=== PATIENT | female | born 1975 | race Caucasian/White ===

== ENCOUNTER → 2016-10-09 | Outpatient (CLI) | payer OTHER ==
[~2016-10-09] MED LIST: ASPIRIN ADULT L81 M1 PO; BUSPAR5 MG PO; CYCLOBENZAPRINE5 M3 PO; FISH OIL500 M1 PO; HYDROCODONE BIT1 T11 PO; MOBIC15 MG PO; MULTI VITAMINS1 TAB PO; Motrin,Rufen800 MG PO; NEPHRO-VITE RX1 TAB PO; ORTHO TRI-CYCL1 EACH PO; SINGULAIR10 M1 PO; TYLENOL650 MG PO; VITAMIN D3400 UNIT PO; XANAX0.25 MG PO; ZOFRAN ODT4 MG SL; ZYRTEC10 M2 PO
--- NOTE | ~2016-10-09 | ST ---
[place], [place] EXERCISE STRESS TEST REPORT NAME: CAN BERNSTEIN [facility] #: [id number] UNIT #: [id number] ROOM: DOCTOR: DEV LOPEZ,JULIA BIRTHDATE: [birth year] DOS: 10/09/2016 EXERCISE MYOCARDIAL STRESS TEST REASON FOR STRESS TEST: Atypical, precordial chest pain. PROCEDURE: The patient walked for 10 minutes on a full Gian protocol stress test and achieved a maximum heart rate of 175, which represented 98% of her maximum predicted heart rate at a workload of 12.5 mets. She did not experience her presenting chest pain and stopped for fatigue and dyspnea. The resting electrocardiogram was normal. During exercise, she had up to 1.[address] segment depression in the inferior and lateral leads, which resolved immediately in recovery. This is an equivocal electrocardiographic change which predicts a low risk for coronary ischemia. Resting blood pressure of 110/60, alanis to 160 over palpation. IMPRESSION: 1. Excellent exercise capacity without chest pain and with equivocal electrocardiographic changes. 2. Low risk exercise stress test. JULIA MÉNDEZ MD CM:STRESS:EXERCISE STRESS TEST REPORT [id number] JULIA MÉNDEZ MD
== END | disposition home or self-care (01) ==
LOC: CARD 08:15
DX: R00.2 Palpitations (principal); R07.89 Other chest pain

== ENCOUNTER 2016-10-10 20:22 | Emergency (ER) | payer OTHER ==
[~2016-10-10] VITALS: Ht 160 cm; Wt 73.9 kg
[~2016-10-10 20:22] MED LIST changes: -HYDROCODONE BIT1 T11 PO
[2016-10-10 20:31] VITALS: BP 140/86
[2016-10-10] MEDS ORDERED: HYDROCODONE BIT1 T11 PO (22:05)
== END 2016-10-10 22:00 | disposition home or self-care (01) ==
LOC: ED 20:22
DX: S02.2XXA Fracture of nasal bones, initial encounter for closed fracture (principal); S09.8XXA Other specified injuries of head, initial encounter; Z79.82 Long term (current) use of aspirin; Z79.899 Other long term (current) drug therapy; W10.9XXA Fall (on) (from) unspecified stairs and steps, initial encounter; Y93.9 Activity, unspecified; Y92.9 Unspecified place or not applicable; Y99.9 Unspecified external cause status

== ENCOUNTER → 2017-05-14 | Outpatient (CLI) | payer OTHER ==
[~2017-05-14] MED LIST changes: +HYDROCODONE BIT1 T11 PO
== END | disposition home or self-care (01) ==
LOC: MAMMO 17:24
DX: Z12.31 Encounter for screening mammogram for malignant neoplasm of breast (principal)

== ENCOUNTER → 2017-05-20 | Outpatient (CLI) | payer OTHER ==
[2017-05-20 14:05] LABS: HEMATOCRIT 40.5 % (37.0-47.0); HEMOGLOBIN 13.7 g/dl (12.0-16.0)
[2017-05-21 08:12] LABS: FOLLICLE STIMULATING HORMONE 3.4 mIU/mL (.); LUTEINIZING HORMONE 004283 7.4 mIU/mL (.)
== END | disposition home or self-care (01) ==
LOC: LAB 13:15
PROVIDERS: Family Medicine
DX: N93.8 Other specified abnormal uterine and vaginal bleeding (principal)

== ENCOUNTER → 2017-05-22 | Outpatient (CLI) | payer OTHER | END | disposition home or self-care (01) | LOC: US 05-20 13:17 | DX: N93.8 Other specified abnormal uterine and vaginal bleeding (principal); R10.30 Lower abdominal pain, unspecified ==

== ENCOUNTER 2017-06-07 18:27 | Emergency (ER) | payer OTHER ==
[~2017-06-07] VITALS: Ht 160 cm; Wt 74.8 kg
--- NOTE | ~2017-06-07 | EKG ---
[place], [place] ELECTROCARDIOGRAM REPORT NAME: CAN BERNSTEIN UNIT #: [id number] ROOM: DOCTOR: CINDY LOPEZ,FILI BIRTHDATE: [birth year] DOS: 06/07/2017 TIME: 1903 hours. CONCLUSION: 1. Normal sinus rhythm. 2. Low voltage complex in the precordial leads. FILI WHITE MD CM:EKGRPT:ELECTROCARDIOGRAM REPORT [id number] FILI WHITE MD
[2017-06-07 19:07] LABS: BASO % 0.4 % (0.0-1.0); EOS # 0.1 10*3/uL (0.0-0.4); EOS % 0.8 % (1.0-4.0); HEMOGLOBIN 12.9 g/dl (12.0-16.0); LYMPH # 2.8 10*3/uL (1.3-4.4); LYMPH % 35.1 % (27.0-41.0); MEAN CELL VOLUME 93.9 fl (81.0-99.0); MEAN CORPUSCULAR HGB 32.7 pg (27.0-31.0); MEAN CORPUSCULAR HGB CONC 34.9 g/dl (33.0-37.0); MEAN PLATELET VOLUME 9.7 fl (9.6-12.3); MONO # 0.7 10*3/uL (0.1-1.0); MONO % 8.7 % (3.0-9.0); NEUT # 4.4 10*3/uL (2.3-7.9); NEUT % 54.7 % (47.0-73.0); PLATELET COUNT AUTOMATED 212 10*3/uL (130-400); RED BLOOD COUNT 3.94 10*6/uL (4.10-5.10); RED CELL DISTRI WIDTH 11.7 % (0-14.5)
[2017-06-07 19:16] LABS: INTERNATIONAL NORM RATIO 0.9 (2.0-3.5)
[2017-06-07 19:24] LABS: ALBUMIN 3.5 gm/dl (3.1-4.5); ALKALINE PHOSPHATASE 37 U/L (45-117); BUN 15 mg/dl (7-24); CHLORIDE 108 mmol/L (98-107); CPK 85 U/L (26-192); CREATININE 0.78 mg/dL (0.55-1.02); LDH 120 U/L (84-246); POTASSIUM 3.8 mmol/L (3.5-5.1); SGOT/AST 11 IU/L (3-35); SGPT/ALT 18 U/L (12-78); SODIUM 141 mmol/L (136-145); TOTAL PROTEIN 7.1 gm/dL (6.4-8.2)
[2017-06-07 19:27] LABS: CKMB < 0.5 ng/ml (0.5-3.6); TROPONIN I < 0.015 ng/ml (<0.045)
[2017-06-07 20:32] VITALS: BP 119/72
[2017-06-07] MEDS ORDERED: NAPROSYN500 MG PO (23:08)
[2017-06-07] MEDS ORDERED: ROBAXIN-750750 MG PO (23:08)
== END 2017-06-07 23:41 | disposition home or self-care (01) ==
LOC: ED 18:27
PROVIDERS: Physician Assistant
DX: R07.9 Chest pain, unspecified (principal); R06.02 Shortness of breath; Z79.82 Long term (current) use of aspirin; Z79.899 Other long term (current) drug therapy

== ENCOUNTER → 2017-08-02 | Outpatient (CLI) | payer OTHER ==
[~2017-08-02] MED LIST changes: +NAPROSYN500 MG PO; +ROBAXIN-750750 MG PO
[2017-08-02 12:21] LABS: INTERNATIONAL NORM RATIO 0.9 (2.0-3.5)
[2017-08-02 12:22] LABS: BASO % 0.3 % (0.0-1.0); EOS # 0.1 10*3/uL (0.0-0.4); EOS % 1.5 % (1.0-4.0); HEMATOCRIT 40.4 % (37.0-47.0); HEMOGLOBIN 13.8 g/dl (12.0-16.0); LYMPH # 1.7 10*3/uL (1.3-4.4); MEAN CORPUSCULAR HGB 32.1 pg (27.0-31.0); MEAN CORPUSCULAR HGB CONC 34.2 g/dl (33.0-37.0); MEAN PLATELET VOLUME 9.9 fl (9.6-12.3); MONO # 0.5 10*3/uL (0.1-1.0); MONO % 8.9 % (3.0-9.0); NEUT # 3.6 10*3/uL (2.3-7.9); NEUT % 60.1 % (47.0-73.0); PLATELET COUNT AUTOMATED 215 10*3/uL (130-400); RED CELL DISTRI WIDTH 11.8 % (0-14.5)
[2017-08-02 12:31] LABS: ALBUMIN 3.7 gm/dl (3.1-4.5); ALKALINE PHOSPHATASE 39 U/L (45-117); BUN 11 mg/dl (7-24); CHLORIDE 106 mmol/L (98-107); CREATININE 0.79 mg/dL (0.55-1.02); SGOT/AST 12 IU/L (3-35); SGPT/ALT 23 U/L (12-78); SODIUM 140 mmol/L (136-145); TOTAL PROTEIN 7.5 gm/dL (6.4-8.2)
[2017-08-04 15:03] LABS: PROTEIN S-FUNCTIONAL 164525 129 % (63-140)
== END | disposition home or self-care (01) ==
LOC: LAB 11:35
PROVIDERS: Family Medicine
DX: R25.2 Cramp and spasm (principal); R79.1 Abnormal coagulation profile; Z82.49 Family history of ischemic heart disease and other diseases of the circulatory system

== ENCOUNTER → 2017-08-09 | Outpatient (CLI) | payer OTHER | END | disposition home or self-care (01) | LOC: LAB 14:50 | DX: A09 Infectious gastroenteritis and colitis, unspecified (principal); R19.5 Other fecal abnormalities ==

== ENCOUNTER → 2017-08-14 | Outpatient (CLI) | payer OTHER ==
[2017-08-14 18:29] LABS: BASO % 0.3 % (0.0-1.0); EOS # 0.1 10*3/uL (0.0-0.4); EOS % 1.5 % (1.0-4.0); HEMATOCRIT 39.7 % (37.0-47.0); HEMOGLOBIN 13.6 g/dl (12.0-16.0); LYMPH # 2.6 10*3/uL (1.3-4.4); LYMPH % 42.5 % (27.0-41.0); MEAN CELL VOLUME 92.3 fl (81.0-99.0); MEAN CORPUSCULAR HGB 31.6 pg (27.0-31.0); MEAN CORPUSCULAR HGB CONC 34.3 g/dl (33.0-37.0); MEAN PLATELET VOLUME 9.6 fl (9.6-12.3); MONO # 0.6 10*3/uL (0.1-1.0); MONO % 10.1 % (3.0-9.0); NEUT # 2.8 10*3/uL (2.3-7.9); NEUT % 45.3 % (47.0-73.0); PLATELET COUNT AUTOMATED 269 10*3/uL (130-400); RED CELL DISTRI WIDTH 11.4 % (0-14.5); WHITE BLOOD COUNT 6.1 10*3/uL (4.8-10.8)
[2017-08-14 18:45] LABS: ALBUMIN 3.8 gm/dl (3.1-4.5); ALKALINE PHOSPHATASE 40 U/L (45-117); BUN 15 mg/dl (7-24); CHLORIDE 102 mmol/L (98-107); CREATININE 0.84 mg/dL (0.55-1.02); POTASSIUM 3.9 mmol/L (3.5-5.1); SGOT/AST 13 IU/L (3-35); SGPT/ALT 21 U/L (12-78); SODIUM 140 mmol/L (136-145); TOTAL PROTEIN 7.4 gm/dL (6.4-8.2)
== END ==
LOC: LAB 18:08
PROVIDERS: Family Medicine Adult Medicine
DX: R05 Cough (principal); R09.89 Other specified symptoms and signs involving the circulatory and respiratory systems; R06.2 Wheezing

== ENCOUNTER 2017-09-07 13:39 | Emergency (ER) | payer OTHER ==
[~2017-09-07] VITALS: Ht 160 cm; Wt 74.8 kg
[2017-09-07 13:42] VITALS: BP 143/78
[2017-09-07 13:58] LABS: BASO % 0.3 % (0.0-1.0); EOS % 0.3 % (1.0-4.0); HEMATOCRIT 42.5 % (37.0-47.0); HEMOGLOBIN 14.5 g/dl (12.0-16.0); LYMPH # 1.5 10*3/uL (1.3-4.4); LYMPH % 21.9 % (27.0-41.0); MEAN CELL VOLUME 92.8 fl (81.0-99.0); MEAN CORPUSCULAR HGB 31.7 pg (27.0-31.0); MEAN CORPUSCULAR HGB CONC 34.1 g/dl (33.0-37.0); MEAN PLATELET VOLUME 9.4 fl (9.6-12.3); MONO # 0.5 10*3/uL (0.1-1.0); MONO % 6.4 % (3.0-9.0); NEUT % 70.8 % (47.0-73.0); PLATELET COUNT AUTOMATED 203 10*3/uL (130-400); RED BLOOD COUNT 4.58 10*6/uL (4.10-5.10); RED CELL DISTRI WIDTH 11.8 % (0-14.5)
[2017-09-07 14:14] LABS: ALKALINE PHOSPHATASE 41 U/L (45-117); BUN 13 mg/dl (7-24); CHLORIDE 106 mmol/L (98-107); CREATININE 0.89 mg/dL (0.55-1.02); LIPASE 271 U/L (73-393); POTASSIUM 3.7 mmol/L (3.5-5.1); SGOT/AST 13 IU/L (3-35); SGPT/ALT 27 U/L (12-78); SODIUM 140 mmol/L (136-145); TOTAL PROTEIN 7.9 gm/dL (6.4-8.2)
[2017-09-07 14:36] LABS: BILIRUBIN NEGATIVE (NEGATIVE); BLOOD TRACE-LYSED (NEGATIVE); CLARITY CLEAR (CLEAR); COLOR YELLOW (YELLOW); GLUCOSE NEGATIVE (NEGATIVE); KETONE NEGATIVE (NEGATIVE); LEUKO ESTERASE NEGATIVE (NEGATIVE); NITRITE NEGATIVE (NEGATIVE); PH 6.5 (5.0-9.0); UROBILINOGEN 0.2 E.U./dl (0.2-1.0)
[2017-09-07 14:41] LABS: BACTERIA TRACE; EPITHELIAL CELLS 0-2; WBC 0-2 wbc/hpf (0-5)
[2017-09-07] MEDS ORDERED: MIRALAX POWDER17 G1 PO (15:49)
== END 2017-09-07 15:53 | disposition home or self-care (01) ==
LOC: ED 13:39
PROVIDERS: Nurse Practitioner Family
DX: K59.00 Constipation, unspecified (principal); R03.0 Elevated blood-pressure reading, without diagnosis of hypertension; G43.909 Migraine, unspecified, not intractable, without status migrainosus; Z90.49 Acquired absence of other specified parts of digestive tract; Z98.890 Other specified postprocedural states; Z79.899 Other long term (current) drug therapy; Z79.82 Long term (current) use of aspirin

== ENCOUNTER 2017-09-13 15:55 | Emergency (ER) | payer OTHER ==
[~2017-09-13] VITALS: Ht 160 cm; Wt 72.6 kg
[~2017-09-13 15:55] MED LIST changes: +MIRALAX POWDER17 G1 PO
[2017-09-13 16:04] VITALS: BP 128/69
[2017-09-13 16:39] LABS: BASO % 0.2 % (0.0-1.0); EOS % 0.5 % (1.0-4.0); HEMATOCRIT 40.5 % (37.0-47.0); HEMOGLOBIN 14.1 g/dl (12.0-16.0); LYMPH # 1.9 10*3/uL (1.3-4.4); LYMPH % 31.4 % (27.0-41.0); MEAN CELL VOLUME 91.2 fl (81.0-99.0); MEAN CORPUSCULAR HGB 31.8 pg (27.0-31.0); MEAN CORPUSCULAR HGB CONC 34.8 g/dl (33.0-37.0); MEAN PLATELET VOLUME 9.6 fl (9.6-12.3); MONO # 0.5 10*3/uL (0.1-1.0); MONO % 7.6 % (3.0-9.0); NEUT # 3.7 10*3/uL (2.3-7.9); NEUT % 60.1 % (47.0-73.0); PLATELET COUNT AUTOMATED 207 10*3/uL (130-400); RED BLOOD COUNT 4.44 10*6/uL (4.10-5.10); RED CELL DISTRI WIDTH 11.5 % (0-14.5); WHITE BLOOD COUNT 6.1 10*3/uL (4.8-10.8)
[2017-09-13 16:53] LABS: ALBUMIN 3.9 gm/dl (3.1-4.5); ALKALINE PHOSPHATASE 41 U/L (45-117); BUN 10 mg/dl (7-24); CHLORIDE 109 mmol/L (98-107); CREATININE 0.78 mg/dL (0.55-1.02); LIPASE 250 U/L (73-393); POTASSIUM 3.6 mmol/L (3.5-5.1); SGOT/AST 14 IU/L (3-35); SGPT/ALT 23 U/L (12-78); SODIUM 141 mmol/L (136-145); TOTAL PROTEIN 7.8 gm/dL (6.4-8.2)
[2017-09-13 17:16] LABS: BILIRUBIN NEGATIVE (NEGATIVE); BLOOD TRACE-LYSED (NEGATIVE); CLARITY CLEAR (CLEAR); COLOR YELLOW (YELLOW); GLUCOSE NEGATIVE (NEGATIVE); KETONE NEGATIVE (NEGATIVE); LEUKO ESTERASE NEGATIVE (NEGATIVE); NITRITE NEGATIVE (NEGATIVE); PH 6.5 (5.0-9.0); SPECIFIC GRAVITY <= 1.005 (1.005-1.030); UROBILINOGEN 0.2 E.U./dl (0.2-1.0)
[2017-09-13 17:25] LABS: RBC 0-2 rbc/hpf (0-2); WBC 0-2 wbc/hpf (0-5)
[2017-09-13] MEDS ORDERED: BENTYL10 MG PO (18:30)
[2017-09-13] MEDS ORDERED: ZANTAC 150150 MG PO (18:30)
== END 2017-09-13 18:33 | disposition home or self-care (01) ==
LOC: ED 15:55
PROVIDERS: Physician Assistant
DX: R10.13 Epigastric pain (principal); R10.11 Right upper quadrant pain; Z90.49 Acquired absence of other specified parts of digestive tract; Z98.890 Other specified postprocedural states; Z79.899 Other long term (current) drug therapy; Z79.82 Long term (current) use of aspirin

== ENCOUNTER → 2017-10-04 | Day surgery (SDC) | payer OTHER ==
[~2017-10-04] VITALS: Ht 160 cm; Wt 74.8 kg
[~2017-10-04] MED LIST changes: +BENTYL10 MG PO; +HYOSCYAMINE0.125 MG PO; +OMEPRAZOLE20 M2 PO; +ZANTAC 150150 MG PO
--- NOTE | ~2017-10-04 | O ---
[place], [place] OPERATIVE NOTE NAME: CAN BERNSTEIN UNIT #: [id number] ROOM: DOCTOR: PATRICIA LEI MD BIRTHDATE: [birth year] DOS: 10/04/2017 HISTORY OF PRESENT ILLNESS: A 42-year-old patient who presented with a chief complaint of epigastric abdominal pain, dyspepsia, bloating. Labs and chemistries were normal. Constipation has been also experienced by her. ALLERGIES: WHEAT. FAMILY HISTORY: Noncontributory. PAST SURGICAL HISTORY: Cholecystectomy and . PAST MEDICAL HISTORY: Hypercholesterolemia, anxiety. SOCIAL HISTORY: Quit smoking, nonalcohol consumer. PROCEDURE: Today's procedure part of investigation is panendoscopy and colonoscopy. PREMEDICATION: Versed and Diprivan. SCOPE: Olympus forward-viewing gastroscope Q10 video. REPORT: After putting the patient in left lateral position and application of lubricant to the scope, the scope was introduced. Thereafter, under direct visualization, I advanced through the length of esophagus without difficulty. Esophagus, cervical, thoracic distal within normal limits. Small hiatal hernia was noticed. Gastric pouch was entered. Gastritis was identified. Duodenal bulb, second and third part within normal limits. The patient was gradually extubated and tolerated procedure well. IMPRESSION: Gastritis, small hiatal hernia, status post antral biopsy. PLAN AND DISCUSSION: I am going to proceed with colonoscopic evaluation. Thank you very much indeed. GASTROENDOSCOPIC REPORT HISTORY: A 42-year-old patient who presented with chief complaint of epigastric abdominal pain, change in bowel habit. Today's procedure part of investigation is colonoscopy. PREMEDICATION: Versed and Diprivan. SCOPE: Olympus folding colonoscope 10L video. REPORT: After putting the patient in left lateral position and application of lubricant to rectal pouch and digital examination, scope was introduced. [place], [place] OPERATIVE NOTE NAME: CAN BERNSTEIN UNIT #: [id number] ROOM: DOCTOR[facility] B[facility] [birth year] Thereafter, under direct visualization, advanced through the length of colon without difficulty. Sessile polypoid lesion and sigmoid colon with piecemeal polypectomy as well as another small polyp nearly next to it with piecemeal polypectomy was removed. No acute pathology otherwise to base of cecum explored noticed. Appendiceal orifice was identified, photographed. Ileocecal valve was photographed. The patient extubated, tolerated procedure well. IMPRESSION: Sessile colonic polyp at sigmoid colon 2.5 mm, status post 2 piecemeal polypectomy. PLAN AND DISCUSSION: I did not see any acute pathology in the colon and the patient has had several CT scans done last year and this year with and without contrast. No pathology has been identified. Therefore, we are going to treat her with hyoscyamine 0.125 mg to see 1 every day to see if her symptomatology improves. In addition, her upper GI tract symptoms is going to be addressed with PPI therapy including omeprazole 20 mg 1 daily. She is already on Bentyl, Bentyl is going to be discontinued. She has taken Bentyl 4 times a day as going to be discontinued and her other medications noticed. Supportive care in progress. Thank you very much indeed for your kind referral. PATRICIA LEI MD CM:MELYORD:OPERATIVE NOTE [id number] [id number] PATRICIA LEI MD 10/04/17 1236 interface
[2017-10-04 10:14] VITALS: BP 126/66
[2017-10-04 11:32] VITALS: BP 102/62
[2017-10-04 11:47] VITALS: BP 94/50
== END | disposition home or self-care (01) ==
LOC: SDC 10-01 08:00
DX: K29.50 Unspecified chronic gastritis without bleeding (principal); K63.5 Polyp of colon; K44.9 Diaphragmatic hernia without obstruction or gangrene; Z91.018 Allergy to other foods; Z90.49 Acquired absence of other specified parts of digestive tract; Z98.890 Other specified postprocedural states; E78.00 Pure hypercholesterolemia, unspecified; F41.9 Anxiety disorder, unspecified; Z87.891 Personal history of nicotine dependence; Z80.9 Family history of malignant neoplasm, unspecified

== ENCOUNTER → 2017-10-30 | Outpatient (CLI) | payer OTHER | END | disposition home or self-care (01) | LOC: US 15:39 | DX: R10.2 Pelvic and perineal pain (principal) ==

== ENCOUNTER → 2017-12-04 | Outpatient (CLI) | payer OTHER ==
[2017-12-04 08:27] LABS: BUN 13 mg/dl (7-24); CHLORIDE 105 mmol/L (98-107); CHOLESTEROL 186 mg/dL (<200); CREATININE 0.85 mg/dL (0.55-1.02); HDL CHOLESTEROL 45 mg/dl (40-60); LDL CHOLESTEROL 119 mg/dL (9-159); POTASSIUM 3.8 mmol/L (3.5-5.1); SODIUM 140 mmol/L (136-145); TRIGLYCERIDES 108 mg/dl (<150); VLDL CHOLESTEROL 22 mg/dL (6-40)
== END | disposition home or self-care (01) ==
LOC: LAB 07:34
PROVIDERS: Nurse Practitioner Adult Health
DX: E78.4 Other hyperlipidemia (principal); E55.9 Vitamin D deficiency, unspecified; R73.01 Impaired fasting glucose; N93.8 Other specified abnormal uterine and vaginal bleeding

== ENCOUNTER → 2018-10-30 | Outpatient (CLI) | payer OTHER ==
[~2018-10-30] MED LIST changes: +BRAIN MIGHT-DH1 EACH PO; +PAXIL30 M2 PO
== END | disposition home or self-care (01) ==
LOC: RESCLI 11:48
DX: E66.9 Obesity, unspecified (principal); F41.9 Anxiety disorder, unspecified; K59.00 Constipation, unspecified; E55.9 Vitamin D deficiency, unspecified; B97.89 Other viral agents as the cause of diseases classified elsewhere; M94.0 Chondrocostal junction syndrome [Tietze]; J01.90 Acute sinusitis, unspecified; E78.00 Pure hypercholesterolemia, unspecified; Z79.899 Other long term (current) drug therapy; Z90.49 Acquired absence of other specified parts of digestive tract; Z87.891 Personal history of nicotine dependence; Z88.8 Allergy status to other drugs, medicaments and biological substances

== ENCOUNTER 2018-12-05 17:20 | Emergency (ER) | payer OTHER ==
[~2018-12-05] VITALS: Ht 160 cm; Wt 79.4 kg
--- NOTE | ~2018-12-05 | EKG ---
[place], [place] ELECTROCARDIOGRAM REPORT NAME: CAN BERNSTEIN UNIT #: [id number] ROOM: DOCTOR: LUCIEN DRAFT REPORT BIRTHDATE: [birth year] [facility] Test Date: 2018-12-05 Test Time: 19:56:49 Pat Name: CAN BERNSTEIN Department: Room: Gender: F Director [employer]: Sheyla Santa : 1975 Requested By: JULIA GAUTAM Order Number: [id number] Reading MD: Kenneth Manzanares MD Measurements Intervals [place] Rate: 71 P: 22 ME: 124 QRS: 25 QRSD: 89 T: 27 QT: 369 QTc: 401 Interpretive Statements Sinus rhythm No previous ECG available for comparison Electronically Signed On 12-08-2018 15:27:43 PST by Kenneth Manzanares MD CM:EKGRPT:ELECTROCARDIOGRAM REPORT [id number] JULIA BUCHANAN DRAFT REPORT JULIA GAUTAM DO
--- NOTE | ~2018-12-05 | EKG ---
[place], [place] ELECTROCARDIOGRAM REPORT NAME: CAN BERNSTEIN UNIT #: [id number] ROOM: DOCTOR: LUCIEN DRAFT REPORT BIRTHDATE: [birth year] [facility] Test Date: 2018-12-05 Test Time: 17:22:29 Pat Name: CAN BERNSTEIN Department: Room: Gender: F [employer] Specialist: Sheyla Santa : 1975 Requested By: JULIA GAUTAM Order Number: [id number] Reading MD: Kenneth Manzanares MD Measurements Intervals [place] Rate: 85 P: 18 OR: 109 QRS: 8 QRSD: 87 T: 22 QT: 344 QTc: 409 Interpretive Statements Sinus rhythm Short OR interval No previous ECG available for comparison Electronically Signed On 12-08-2018 15:27:00 PST by Kenneth Manzanares MD CM:EKGRPT:ELECTROCARDIOGRAM REPORT [id number] JULIA BUCHANAN DRAFT REPORT JULIA GAUTAM DO
[~2018-12-05 17:20] MED LIST changes: -BRAIN MIGHT-DH1 EACH PO; -PAXIL30 M2 PO
[2018-12-05 17:32] LABS: BASO % 0.4 % (0.0-1.0); EOS # 0.1 10*3/uL (0.0-0.4); EOS % 1.5 % (1.0-4.0); HEMATOCRIT 39.9 % (37.0-47.0); HEMOGLOBIN 13.5 g/dl (12.0-16.0); LYMPH # 2.6 10*3/uL (1.3-4.4); LYMPH % 36.2 % (27.0-41.0); MEAN CELL VOLUME 92.4 fl (81.0-99.0); MEAN CORPUSCULAR HGB 31.3 pg (27.0-31.0); MEAN CORPUSCULAR HGB CONC 33.8 g/dl (33.0-37.0); MEAN PLATELET VOLUME 9.6 fl (9.6-12.3); MONO # 0.7 10*3/uL (0.1-1.0); NEUT # 3.8 10*3/uL (2.3-7.9); NEUT % 52.6 % (47.0-73.0); PLATELET COUNT AUTOMATED 210 10*3/uL (130-400); RED BLOOD COUNT 4.32 10*6/uL (4.10-5.10); WHITE BLOOD COUNT 7.3 10*3/uL (4.8-10.8)
[2018-12-05 17:40] LABS: ACT PARTIAL THROMBO TIME 24.8 SECONDS (20.8-31.5); INTERNATIONAL NORM RATIO 0.9 (2.0-3.5)
[2018-12-05] MEDS ORDERED: BRAIN MIGHT-DH1 EACH PO (17:49)
[2018-12-05] MEDS ORDERED: PAXIL30 M2 PO (17:50)
[2018-12-05 18:25] LABS: ALBUMIN 3.6 gm/dl (3.1-4.5); ALKALINE PHOSPHATASE 45 U/L (45-117); BUN 12 mg/dl (7-24); CHLORIDE 106 mmol/L (98-107); CREATININE 0.76 mg/dL (0.55-1.02); POTASSIUM 3.4 mmol/L (3.5-5.1); SGOT/AST 18 IU/L (3-35); SGPT/ALT 27 U/L (12-78); SODIUM 139 mmol/L (136-145); TOTAL PROTEIN 7.7 gm/dL (6.4-8.2)
[2018-12-05 18:34] LABS: TROPONIN I < 0.015 ng/ml (<0.045)
[2018-12-05 20:51] VITALS: BP 111/78
== END 2018-12-05 21:15 | disposition home or self-care (01) ==
LOC: ED 17:20
PROVIDERS: Emergency Medicine
DX: R07.89 Other chest pain (principal); M25.512 Pain in left shoulder; I73.9 Peripheral vascular disease, unspecified; G43.909 Migraine, unspecified, not intractable, without status migrainosus; Z79.899 Other long term (current) drug therapy

== ENCOUNTER → 2019-04-14 | Outpatient (CLI) | payer OTHER ==
[~2019-04-14] MED LIST changes: +BRAIN MIGHT-DH1 EACH PO; +PAXIL30 M2 PO
[2019-04-14 08:47] LABS: HEMATOCRIT 39.9 % (37.0-47.0); HEMOGLOBIN 13.1 g/dl (12.0-16.0); MEAN CELL VOLUME 94.3 fl (81.0-99.0); MEAN CORPUSCULAR HGB CONC 32.8 g/dl (33.0-37.0); MEAN PLATELET VOLUME 9.9 fl (9.6-12.3); RED BLOOD COUNT 4.23 10*6/uL (4.10-5.10); RED CELL DISTRI WIDTH 12.1 % (0-14.5); WHITE BLOOD COUNT 4.3 10*3/uL (4.8-10.8)
[2019-04-14 09:12] LABS: ALBUMIN 3.8 gm/dl (3.1-4.5); ALKALINE PHOSPHATASE 40 U/L (45-117); BUN 16 mg/dl (7-24); CHLORIDE 108 mmol/L (98-107); CHOLESTEROL 199 mg/dL (<200); CREATININE 0.69 mg/dL (0.55-1.02); HDL CHOLESTEROL 43 mg/dl (40-60); LDL CHOLESTEROL 129 mg/dL (9-159); POTASSIUM 3.9 mmol/L (3.5-5.1); SGOT/AST 13 IU/L (3-35); SGPT/ALT 20 U/L (12-78); SODIUM 141 mmol/L (136-145); TOTAL PROTEIN 7.5 gm/dL (6.4-8.2); TRIGLYCERIDES 136 mg/dl (<150); VLDL CHOLESTEROL 27 mg/dL (6-40)
== END | disposition home or self-care (01) ==
LOC: LAB 08:02
PROVIDERS: Internal Medicine
DX: E55.9 Vitamin D deficiency, unspecified (principal); E78.00 Pure hypercholesterolemia, unspecified; J32.9 Chronic sinusitis, unspecified

== ENCOUNTER → 2019-08-25 | Outpatient (CLI) | payer OTHER | END | disposition home or self-care (01) | LOC: US 03:23 | DX: N64.4 Mastodynia (principal) ==

== ENCOUNTER → 2020-03-09 | Outpatient (CLI) | payer OTHER | END | disposition home or self-care (01) | LOC: LAB 13:19 | PROVIDERS: Nurse Practitioner Women's Health | DX: N95.1 Menopausal and female climacteric states (principal); R59.1 Generalized enlarged lymph nodes; R53.83 Other fatigue ==

== ENCOUNTER → 2020-03-17 | Outpatient (CLI) | payer OTHER | END | disposition home or self-care (01) | LOC: MAMMO 00:29 | DX: Z12.31 Encounter for screening mammogram for malignant neoplasm of breast (principal) ==

== ENCOUNTER → 2020-03-18 | Outpatient (CLI) | payer OTHER | END | disposition home or self-care (01) | LOC: US 05:06 | DX: R10.2 Pelvic and perineal pain (principal) ==

== ENCOUNTER → 2020-05-26 | Outpatient (CLI) | payer OTHER ==
[~2020-05-26] MED LIST changes: +NORCO 5-325 TA1 EACH PO
== END | disposition home or self-care (01) ==
LOC: COVID19 01:00
DX: Z11.59 Encounter for screening for other viral diseases (principal)

== ENCOUNTER → 2020-07-11 | Outpatient (CLI) | payer OTHER ==
[2020-07-13 16:12] LABS: t-TRANSGLUTAMINASE (tTG) IGA <2 U/mL (0-3)
== END | disposition home or self-care (01) ==
LOC: LAB 15:37
PROVIDERS: ATTEND Physician Assistant
DX: Z91.018 Allergy to other foods (principal)

== ENCOUNTER → 2020-11-04 | Outpatient (CLI) | payer OTHER ==
[2020-11-04 09:23] LABS: HEMATOCRIT 42.5 % (37.0-47.0); MEAN CELL VOLUME 94.2 fl (81.0-99.0); MEAN CORPUSCULAR HGB CONC 32.9 g/dl (33.0-37.0); MEAN PLATELET VOLUME 10.3 fl (9.6-12.3); RED BLOOD COUNT 4.51 10*6/uL (4.10-5.10); RED CELL DISTRI WIDTH 12.3 % (0-14.5)
== END | disposition home or self-care (01) ==
LOC: LAB 00:03
PROVIDERS: ATTEND Physician Assistant
DX: E55.9 Vitamin D deficiency, unspecified (principal); L03.211 Cellulitis of face; F41.8 Other specified anxiety disorders; E78.00 Pure hypercholesterolemia, unspecified

== ENCOUNTER → 2021-01-18 | Outpatient (CLI) | payer OTHER | END | disposition home or self-care (01) | LOC: CT 01-17 14:00 | PROVIDERS: ATTEND Physician Assistant | DX: G44.209 Tension-type headache, unspecified, not intractable (principal) ==

== ENCOUNTER → 2021-04-25 | Outpatient (CLI) | payer OTHER | END | disposition home or self-care (01) | LOC: MAMMO 01:46 | PROVIDERS: ATTEND Nurse Practitioner Women's Health | DX: Z12.31 Encounter for screening mammogram for malignant neoplasm of breast (principal) ==

== ENCOUNTER 2021-09-10 18:38 | Emergency (ER) | payer OTHER ==
[~2021-09-10] VITALS: Wt 77.6 kg
[2021-09-10 18:42] VITALS: BP 121/84
== END 2021-09-10 21:40 | disposition home or self-care (01) ==
LOC: ED 18:38
DX: M25.462 Effusion, left knee (principal)

== ENCOUNTER → 2021-09-13 | Outpatient (CLI) | payer OTHER | END | disposition home or self-care (01) | LOC: MRI 09:49 | PROVIDERS: ATTEND Orthopaedic Surgery | DX: S83.512A Sprain of anterior cruciate ligament of left knee, initial encounter (principal); M25.462 Effusion, left knee; X58.XXXA Exposure to other specified factors, initial encounter; Y93.89 Activity, other specified; Y92.89 Other specified places as the place of occurrence of the external cause; Y99.8 Other external cause status ==

== ENCOUNTER → 2022-05-09 | Outpatient (CLI) | payer OTHER | END | disposition home or self-care (01) | LOC: MAMMO 00:50 | PROVIDERS: ATTEND Nurse Practitioner Women's Health | DX: Z12.31 Encounter for screening mammogram for malignant neoplasm of breast (principal) ==

== ENCOUNTER → 2022-08-14 | Outpatient (CLI) | payer OTHER ==
[~2022-08-14] MED LIST changes: +CLARITIN10 MG PO; -VITAMIN D3400 UNIT PO; +VITAMIN D350 MCG PO
== END | disposition home or self-care (01) ==
LOC: RAD 17:56
PROVIDERS: ATTEND Internal Medicine
DX: M77.32 Calcaneal spur, left foot (principal); M19.072 Primary osteoarthritis, left ankle and foot

== ENCOUNTER → 2022-08-20 | Day surgery (SDC) | payer OTHER ==
[~2022-08-20] VITALS: Ht 160 cm; Wt 81.6 kg
[~2022-08-20] MED LIST changes: +CARAFATE1 G1 PO; +PROTONIX40 MG PO
[2022-08-20 06:50] VITALS: BP 111/68
[2022-08-20 07:53] VITALS: BP 123/74
[2022-08-20 08:08] VITALS: BP 124/70
[2022-08-20 08:23] VITALS: BP 122/81
== END | disposition home or self-care (01) ==
LOC: SDC 08-16 00:29
PROVIDERS: ATTEND Surgery
DX: K59.01 Slow transit constipation (principal); K29.50 Unspecified chronic gastritis without bleeding; K21.9 Gastro-esophageal reflux disease without esophagitis; K25.9 Gastric ulcer, unspecified as acute or chronic, without hemorrhage or perforation; F41.9 Anxiety disorder, unspecified; E78.00 Pure hypercholesterolemia, unspecified; F32.A Depression, unspecified; G43.909 Migraine, unspecified, not intractable, without status migrainosus; Z90.49 Acquired absence of other specified parts of digestive tract; Z98.890 Other specified postprocedural states; Z79.899 Other long term (current) drug therapy

== ENCOUNTER → 2023-05-27 | Outpatient (CLI) | payer OTHER | END | disposition home or self-care (01) | LOC: MAMMO 01:21 | PROVIDERS: ATTEND Nurse Practitioner Women's Health | DX: Z12.31 Encounter for screening mammogram for malignant neoplasm of breast (principal) ==

== ENCOUNTER → 2023-12-27 | Outpatient (CLI) | payer OTHER | END | disposition home or self-care (01) | LOC: RAD 01:46 | PROVIDERS: ATTEND Physician Assistant | DX: M43.17 Spondylolisthesis, lumbosacral region (principal) ==

== ENCOUNTER → 2024-08-10 | Outpatient (CLI) | payer OTHER | END | disposition home or self-care (01) | LOC: MAMMO 06-22 13:00 | PROVIDERS: ATTEND Nurse Practitioner Women's Health | DX: Z12.31 Encounter for screening mammogram for malignant neoplasm of breast (principal) ==

== ENCOUNTER → 2024-08-29 | Outpatient (CLI) | payer OTHER | END | disposition home or self-care (01) | LOC: RAD 00:48 | PROVIDERS: ATTEND Physician Assistant | DX: M79.671 Pain in right foot (principal) ==

== ENCOUNTER → 2025-03-05 | Outpatient (CLI) | payer OTHER | END | disposition home or self-care (01) | LOC: ORTHO 01:23 | PROVIDERS: ATTEND Orthopaedic Surgery | DX: M25.512 Pain in left shoulder (principal) ==

== ENCOUNTER → 2025-08-12 | Outpatient (CLI) | payer OTHER | END | disposition home or self-care (01) | LOC: MAMMO 08-03 15:30 | PROVIDERS: ATTEND Nurse Practitioner Women's Health | DX: Z12.31 Encounter for screening mammogram for malignant neoplasm of breast (principal) ==

== ENCOUNTER 2025-09-28 06:10 | Emergency (ER) | payer OTHER ==
[~2025-09-28] VITALS: Ht 160 cm; Wt 81.6 kg
[2025-09-28] MEDS ORDERED: diphenhydrAMINE hydrochloride 50 MG/ML VIAL IV ONE (06:25)
[2025-09-28] MEDS ORDERED: Ondansetron Hydrochloride 4 MG/2 ML VIAL IV ONE (06:25)
[2025-09-28] MEDS ORDERED: SODIUM CHLORIDE 0.9% 1,000 ML IV ONE (06:30)
[2025-09-28 06:50] VITALS: BP 156/83
[2025-09-28 06:50] LABS: BASO # 0.0 10*3/uL (0.0-0.1); BASO % 0.4 % (0.0-1.0); EOS # 0.2 10*3/uL (0.0-0.4); EOS % 2.7 % (1.0-4.0); MEAN CELL VOLUME 92.1 fl (81.0-99.0); MEAN CORPUSCULAR HGB 31.8 pg (27.0-31.0); MEAN PLATELET VOLUME 9.5 fl (9.6-12.3); MONO # 0.5 10*3/uL (0.1-1.0); MONO % 9.7 % (3.0-9.0); NEUT # 3.1 10*3/uL (2.3-7.9); NEUT % 56.8 % (47.0-73.0); NUCLEATED RED BLOOD CELL 0.0 % (0.0-0.0); NUCLEATED RED BLOOD CELL 0.0 10*3/uL (0.0-0.0); PLATELET COUNT AUTOMATED 239 10*3/uL (130-400); RED CELL DISTRI WIDTH 11.6 % (0-14.5)
[2025-09-28 07:22] LABS: BUN 10 mg/dl (9-23)
[2025-09-28] MEDS ORDERED: BUTALB-ACETAMI1 EACH PO (08:45)
[2025-09-28] MEDS ORDERED: Ondansetron4 MG PO (08:45)
== END 2025-09-28 08:49 | disposition home or self-care (01) ==
LOC: ED 06:10
PROVIDERS: Internal Medicine
DX: R51.9 Headache, unspecified (principal); J06.9 Acute upper respiratory infection, unspecified; F41.9 Anxiety disorder, unspecified; F32.A Depression, unspecified; Z98.890 Other specified postprocedural states; Z20.822 Contact with and (suspected) exposure to COVID-19